=== PATIENT | male | born 1980 | race Caucasian/White ===

== ENCOUNTER 2017-01-14 16:00 | Emergency (ER) | payer BC, MEDICAID ==
--- NOTE | 2017-01-14 18:10 | RAD ---
INDICATION: Right ankle erythema, swelling and pain. TECHNIQUE: 3 views of the right ankle were obtained. FINDINGS: There is diffuse soft tissue swelling. The bones are in normal alignment. No fracture is seen. 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 IMPRESSION: SOFT TISSUE SWELLING.
--- NOTE | 2017-01-14 18:14 | ED ---
Lower Extremity - HPI Summary HPI Summary: 36 male presents with complaints of right ankle swelling, redness and pain that began ~2 days ago and has been worsening. Patient denies trauma and injury to ankle. States he woke up with it like this 2 days ago however it did get worse since then. Tried taking Tylenol without relief. Last dose at 12. Denies difficulty breathing, chest pain and any known bite or wound. Denies PMHx, no asthma, diabetes or HTN. Pain is described as achey and worsens with walking. No recent travel. Does smoke cigarettes. Denies fever/chills, numbness/tingling. - History of Current Complaint Chief Complaint: EDExtremityLower Stated Complaint: RIGHT LEG SWELLING Time Seen by Provider: 01/14/17 17:47 Hx Obtained From: Patient Mechanism Of Injury: Unknown Onset of Pain: Days - 2 Onset/Duration: Days Severity Initially: Mild Severity Currently: Moderate Pain Intensity: 6 Pain Scale Used: 0-10 Numeric Timing: Constant Character Of Pain: Aching Associated Signs And Symptoms: Positive: Negative Aggravating Factor(s): Standing, Ambulation, Movement Alleviating Factor(s): Rest Able to Bear Weight: Yes - Risk Factors Gout Risk Factors: Male, Obesity DVT Risk Factors: Negative Septic Arthritis Risk Factor: Negative - Allergies/Home Medications Allergies/Adverse Reactions: Allergies Allergy/AdvReac Type Severity Reaction Status Date / Time No Known Allergies Allergy Verified 03/25/15 17:13 PMH/Surg Hx/FS Hx/Imm Hx Endocrine/Hematology History: Denies: Hx Diabetes Cardiovascular History: Denies: Hx Hypertension, Hx Pacemaker/ICD Respiratory History: Denies: Hx Asthma Sensory History: Denies: Hx Hearing Aid Psychiatric History: Denies: Hx Panic Disorder - Surgical History Surgery Procedure, Year, and Place: VASECTOMY - Immunization History Immunizations Up to Date: Yes Infectious Disease History: No Infectious Disease History: Reports: Hx Shingles Denies: Traveled Outside the [place] in Last 30 Days - Family History Known Family History: Positive: Cardiac Disease - Social History Alcohol Use: None Substance Use Type: Reports: None Smoking Status (MU): Heavy Every Day Tobacco Smoker Type: Cigarettes Amount Used/How Often: 2 PPD Length of Time of Smoking/Using Tobacco: 20 years Have You Smoked in the Last Year: Yes Review of Systems Constitutional: Negative Cardiovascular: Negative Respiratory: Negative Gastrointestinal: Negative Positive: Arthralgia, Myalgia, Edema - right ankle Positive: Other - redness and swelling of right ankle Neurological: Negative All Other Systems Reviewed And Are Negative: Yes Physical Exam Triage Information Reviewed: Yes Vital Signs On Initial Exam: Initial Vitals Temp Pulse Resp BP Pulse Ox 98.2 F 87 18 156/77 100 01/14/17 16:04 01/14/17 16:04 01/14/17 16:04 01/14/17 16:04 01/14/17 16:04 elevated BP noted. re-checked. recommended follow up with PCP for re-check for possible HTN Vital Signs Reviewed: Yes Appearance: Positive: Well-Appearing, No Pain Distress, Well-Nourished Skin: Positive: Warm, Skin Color Reflects Adequate Perfusion, Dry, Erythema @ - right ankle, edema 1+ from top of anterior foot to distal right lower leg, no open wounds or bites noted. no obvious deformity, crepitus, step off or signs of trauma. no ecchymosis. tender on palpation. Head/Face: Positive: Normal Head/Face Inspection Eyes: Positive: Normal ENT: Positive: Normal ENT inspection, Hearing grossly normal Neck: Negative: Supple, Nontender, No Lymphadenopathy Respiratory/Lung Sounds: Positive: Clear to Auscultation, Breath Sounds Present. Negative: Rales, Rhonchi, Wheezes Cardiovascular: Positive: Normal, RRR, Pulses are Symmetrical in both Upper and Lower Extremities - 2+ radial and pedal b/l, Leg Edema Right - lower leg and right ankle Abdomen Description: Positive: Nontender, Soft Bowel Sounds: Positive: Present Musculoskeletal: Positive: Normal, Strength/ROM Intact, Pain @ - right ankle, Edema Right - right lower leg, distal and ankle. Negative: Limited @, Interruption @, Abnormal @, Pam Sign Left, Pam Sign Right Neurological: Positive: Normal, Sensory/Motor Intact - sensation intact, Alert, Oriented to Person Place, Time, CN Intact II-III, Reflexes Intact, NV Bundle Intact Distally, Normal Gait Psychiatric: Positive: Normal AVPU Assessment: Alert Diagnostics - Vital Signs Vital Signs Temp Pulse Resp BP Pulse Ox 01/14/17 17:12 99.6 F 79 18 130/81 99 01/14/17 16:04 98.2 F 87 18 156/77 100 - Laboratory Result Diagrams: 01/14/17 19:11 01/14/17 19:11 Lab Statement: Any lab studies that have been ordered have been reviewed, and results considered in the medical decision making process. - Radiology right ankle Xray Interpretation: Positive (See Comments) - SOFT TISSUE SWELLING. Radiology Interpretation Completed By: Radiologist - Ultrasound No standard instances Ultrasound Interpretation: No Acute Changes - NO EVIDENCE FOR DEEP VENOUS THROMBOSIS. Ultrasound Interpretation Completed By: Radiologist Lower Extremity Course/Dx - Course Course Of Treatment: x-ray and u/s obtained to rule out DVT, osteomyelitis, gout , arthritis etc. both were negative. Soft tissue swelling noted. Labs ordered, elevated WBC, otheriwse unremarkable. uric acid low. No open wounds to culture. Due to appearance of swelling and erythema similar to cellulitis will be treated with antibiotics. Close follow up with PCP. Aware of worsening signs and symptoms to watch out for. Ibuprofen for pain. Given toradol for pain management. Some relief. - Diagnoses Differential Diagnosis/HQI/PQRI: Positive: Cellulitis, Contusion, Fracture ( Closed), Infection, Phlebitis, Sprain, Strain, Tendonitis, Other Provider Diagnoses: Cellulitis of right lower extremity Discharge - Discharge Plan Condition: Stable Disposition: HOME Prescriptions: Cephalexin CAP* [Keflex CAP*] 500 mg PO TID #30 cap Sulfamethox/Trimethoprim DS* [Bactrim DS 800/160 TAB*] 1 tab PO BID #28 tab Patient Education Materials: Cellulitis (ED) Forms: *Work Release Referrals: Karmen HUERTA,Vladislav Frank [Primary Care Provider] - Additional Instructions: Take prescribed antibiotics as directed. Take probiotic or eat [place] yogurt in between doses to replenish good bacteria into your digestive tract. If your symptoms do not improve or worsen such as increasing redness, red streaking, swelling, pain or fever/chills please return to ED immediately. Elevate leg to help with swelling. Ibuprofen for discomfort and inflammation. Follow up with PCP within the next 7 days to ensure improvement.
[2017-01-14] MEDS ORDERED: Ketorolac INJ* 60 MG/2 ML VIAL IM ONE (18:21)
--- NOTE | 2017-01-14 19:08 | RAD ---
INDICATION: Right lower extremity swelling. COMPARISON: There are no prior studies available for comparison. TECHNIQUE: Multiple real-time, color flow and Doppler tracings of the right lower extremity were obtained. FINDINGS: The common femoral, femoral, profunda femoral and popliteal veins all demonstrate normal compressibility, augmentation with compression and phasic response with respiration. The posterior tibial and peroneal veins demonstrate normal compressibility and augmentation with compression. No fluid collection is seen. IMPRESSION: NO EVIDENCE FOR DEEP VENOUS THROMBOSIS.
[2017-01-14 19:21] LABS: Hematocrit 45 % (42-52); Hemoglobin 14.8 g/dl (14.0-18.0); Mean Corpuscular HGB Conc 33 g/dl (31-36); Mean Corpuscular Hemoglobin 30 pg (27-31); Mean Corpuscular Volume 92 fL (80-94); Mean Platelet Volume 8 um3 (7.4-10.4); Red Blood Count 4.87 10^6/ul (4.0-5.4); Red Cell Distribution Width 13 % (10.5-15); White Blood Count 14.9 10^3/ul (3.5-10.8)
[2017-01-14 19:35] LABS: Albumin 3.7 g/dL (3.2-5.2); BUN/Creatinine Ratio 10.7 (8-20); Calcium 8.6 mg/dL (8.6-10.3); EGFR African American 151.5 (>60); EGFR Non-African American 117.8 (>60); Globulin 2.6 g/dL (2-4); Potassium 3.3 mmol/L (3.5-5.0); Total Bilirubin 0.4 mg/dL (0.2-1.0); Total Protein 6.3 g/dL (6.4-8.9)
[2017-01-14] MEDS ORDERED: Sulfamethox/Trimethoprim DS 800/160* TAB PO ONE (20:14)
[2017-01-14] MEDS ORDERED: Cephalexin CAP* 500 MG PO ONE (20:15)
[2017-01-14 20:16] LABS: Erythrocyte Sed Rate 7 mm/Hr (0-14)
[2017-01-14 20:59] VITALS: BP 144/77
== END 2017-01-14 20:58 | disposition home or self-care (01) ==
LOC: ED 16:00
DX: L03.115 Cellulitis of right lower limb (principal); R60.0 Localized edema
CPT/HCPCS: 36415; 80053; 84550; 85025; 85652; 96372; 99282; A9270-GY; J1885